=== PATIENT | female | born 1955 | race Asian ===

== ENCOUNTER 2019-03-05 14:35 | Inpatient (IN) | payer MEDICAID ==
[~2019-03-05] VITALS: Ht 152.4 cm; Wt 75.8 kg
[2019-03-05] MEDS ORDERED: IOVERSOL 350 MG/ML 150 ML VIAL ONE (14:56)
[2019-03-05] MEDS ORDERED: SODIUM CHLORIDE 0.9% 100 ML ONE (14:56)
[2019-03-05 15:07] LABS: BASOPHILS % (AUTO) 0.2 % (0.0-2.0); EOSINOPHILS % (AUTO) 0.5 % (1.0-6.0); HEMATOCRIT 31.8 % (36-46); HEMOGLOBIN 10.2 g/dL (12.0-16.0); LYMPHOCYTES # (AUTO) 0.5 K/uL (1.0-4.8); MEAN CORPUSCULAR VOLUME 75 fL (80-100); MONOCYTES # (AUTO) 0.3 K/uL (0.1-1.0); MONOCYTES % (AUTO) 3.4 % (2.0-9.0); NEUTROPHILS # (AUTO) 9.2 K/uL (1.8-7.7); PLATELET COUNT (AUTO) 236 K/uL (150-450); RED BLOOD CELL COUNT(AUTO) 4.25 MIL/uL (4.00-5.20); RED CELL DISTRIBUTION WIDTH 17.6 % (11.5-14.5)
[2019-03-05 15:17] LABS: NEUTROPHILS % (AUTO) 90.9 % (40.0-70.0)
[2019-03-05 15:22] LABS: CALCIUM, TOTAL 8.5 mg/dL (8.8-10.5); CREATININE 1.04 mg/dL (0.60-1.30); POTASSIUM 5.5 mmol/L (3.5-5.1)
[2019-03-05 15:25] LABS: INR 1.1 (0.9-1.1); PROTHROMBIN TIME 11.5 SEC (9.4-11.6)
[2019-03-05 15:47] LABS: ALBUMIN 2.7 g/dL (3.4-5.0); BILIRUBIN,TOTAL 0.3 mg/dL (0.1-1.0)
[2019-03-05] MEDS ORDERED: ALBUTEROL SULFATE 2.5 MG/0.5 ML NEB SOLUTION NEB PRN ×2 (16:45→21:00)
[2019-03-05] MEDS ORDERED: BISACODYL 10 MG RECTAL RECTAL SUPPOSITORY PR PRN (16:45)
[2019-03-05] MEDS ORDERED: FUROSEMIDE 40 MG/4 ML VIAL IVP ONE (18:30)
[2019-03-05 20:06] LABS: APPEARANCE,URINE CLOUDY (CLEAR); BILIRUBIN,URINE NEGATIVE (NEGATIVE); GLUCOSE, URINE (UA) 100 mg/dL (NEGATIVE); KETONES,URINE NEGATIVE (NEGATIVE); LEUKOCYTE ESTERASE ,URINE MODERATE (NEGATIVE); NITRATE,URINE POSITIVE (NEGATIVE); OCCULT BLOOD,URINE MODERATE (NEGATIVE); PROTEIN,URINE SEE CONFIRM (NEGATIVE); UROBILINOGEN,URINE 0.2 mg/dL (<=1.0)
[2019-03-05 20:22] LABS: SULFOSALICYLIC ACID,URINE 4+ (Negative)
[2019-03-05 20:30] LABS: BACTERIA,URINE Many /HPF (None Seen)
[2019-03-05 20:35] LABS: SQUAMOUS EPITHELIAL CELL,UR Few /LPF (None Seen); WBC,URINE 26-50 /HPF (0-5)
[2019-03-05 20:38] LABS: OTHER CASTS, URINE 1 WAXY CAST SEEN /LPF (None Seen)
[2019-03-05 20:39] LABS: RENAL EPITHELIAL CELLS,URINE Few /LPF (None Seen)
[2019-03-05] MEDS ORDERED: CeFAZolin 1 GM/DEXTROSE 50 ML IV ONE (21:00)
[2019-03-05 22:22] VITALS: BP 114/65
[2019-03-05] MEDS ORDERED: SODIUM CHLORIDE 0.9% 1,000 ML ONE (22:51)
[2019-03-06] MEDS: CefTRIAXone 1 GM/DEXTROSE 50 ML IV SCH ×2 (00:07→23:51)
[2019-03-06] MEDS: DOCUSATE SODIUM 100 MG CAPSULE PO SCH ×3 (00:07→21:00)
[2019-03-06] MEDS: HEPARIN SODIUM,PORCINE 5,000 UNITS/ML VIAL SQ SCH ×4 (00:07→23:53)
[2019-03-06 00:10] VITALS: BP 128/67
[2019-03-06 04:42] VITALS: BP 134/69
[2019-03-06 06:33] LABS: ALANINE AMINOTRANSFERASE 25 U/L (12-78); ALBUMIN 2.3 g/dL (3.4-5.0); ALKALINE PHOSPHATASE 129 U/L (46-116); ANION GAP 5 mmol/L (8-16); ASPARTATE AMINOTRANSFERASE 34 U/L (15-37); BILIRUBIN,TOTAL 0.2 mg/dL (0.1-1.0); CALCIUM, TOTAL 8.2 mg/dL (8.8-10.5); CARBON DIOXIDE 30 mmol/L (22-29); CHLORIDE 97 mmol/L (98-107); CREATININE 0.93 mg/dL (0.60-1.30); GLOMERULAR FILTR. RATE CALC > 60 mL/min (>60); GLUCOSE,RANDOM 137 mg/dL (70-110); POTASSIUM 5.1 mmol/L (3.5-5.1); SODIUM SERUM 132 mmol/L (136-145); TOTAL PROTEIN, SERUM 6.9 g/dL (6.4-8.2); UREA NITROGEN, BLOOD 44 mg/dL (7-18)
[2019-03-06 07:33] VITALS: BP 155/59
[2019-03-06 09:56] LABS: LACTATE DEHYDROGENASE 369 U/L (81-234)
[2019-03-06 11:06] VITALS: BP 151/77
[2019-03-06 13:01] LABS: SPECIMENTYPE,BODY FLUID PLEURAL
[2019-03-06 13:32] LABS: APPEARANCE,UNSPUN,BODY FLUID HAZY (CLEAR)
[2019-03-06 13:33] LABS: APPEARANCE,SPUN,BODY FLUID CLEAR (CLEAR); BASOPHILS,BODY FLUID 0 %; COLOR,BODY FLUID YELLOW (LT YELLOW); EOSINOPHILS,BF (ANAL) 0 %; LYMPHOCYTES,BODY FLUID 24 %; MONOCYTES,BODY FLUID 5 %; NEUTROPHILS,BODY FLUID 71 %; OTHER CELLS,BODY FLUID 0; TOTAL VOLUME,BODY FLUID 1000 mL; WBC, BODY FLUID 58 /cu. mm.
[2019-03-06 15:37] VITALS: BP 140/59
[2019-03-06 19:39] VITALS: BP 159/79
[2019-03-07] VITALS (8 sets, daily range): BP systolic 117–181; BP diastolic 57–82
[2019-03-07] MEDS: ACETAMINOPHEN 325 MG TABLET PO PRN (05:11)
[2019-03-07 05:52] LABS: BASOPHILS % (AUTO) 0.4 % (0.0-2.0); HEMATOCRIT 30.2 % (36-46); HEMOGLOBIN 9.6 g/dL (12.0-16.0); LYMPHOCYTES # (AUTO) 0.8 K/uL (1.0-4.8); LYMPHOCYTES % (AUTO) 6.6 % (22.0-44.0); MEAN CORPUSCULAR HEMOGLOBIN 23.5 pg (26.0-34.0); MEAN CORPUSCULAR HGB CONC 31.7 G/dL (31.0-37.0); MEAN CORPUSCULAR VOLUME 74 fL (80-100); NEUTROPHILS # (AUTO) 10.5 K/uL (1.8-7.7); PLATELET COUNT (AUTO) 244 K/uL (150-450); RED BLOOD CELL COUNT(AUTO) 4.08 MIL/uL (4.00-5.20); RED CELL DISTRIBUTION WIDTH 17.9 % (11.5-14.5)
[2019-03-07 06:21] LABS: ANION GAP 1 mmol/L (8-16); CALCIUM, TOTAL 8.2 mg/dL (8.8-10.5); CARBON DIOXIDE 31 mmol/L (22-29); CHLORIDE 98 mmol/L (98-107); GLOMERULAR FILTR. RATE CALC > 60 mL/min (>60); GLUCOSE,RANDOM 113 mg/dL (70-110); PHOSPHORUS 3.8 mg/dL (2.5-4.9); POTASSIUM 4.7 mmol/L (3.5-5.1); SODIUM SERUM 130 mmol/L (136-145); UREA NITROGEN, BLOOD 38 mg/dL (7-18)
[2019-03-07] MEDS: HEPARIN SODIUM,PORCINE 5,000 UNITS/ML VIAL SQ SCH ×3 (08:00→23:46)
[2019-03-07] MEDS: DOCUSATE SODIUM 100 MG CAPSULE PO SCH ×2 (08:39→21:00)
[2019-03-07] MEDS ORDERED: CloNIDine HCL 0.1 MG TABLET PO PRN (15:30)
[2019-03-07] MEDS: AmLODIPine BESYLATE 10 MG TABLET PO SCH (16:16)
[2019-03-07] MEDS: CefTRIAXone 1 GM/DEXTROSE 50 ML IV SCH (23:46)
[2019-03-08] MEDS ORDERED: SODIUM CHLORIDE 0.9% 100 ML ONE (04:36)
[2019-03-08 04:42] VITALS: BP 133/60
[2019-03-08] MEDS: ACETAMINOPHEN 325 MG TABLET PO PRN (04:48)
[2019-03-08 06:49] LABS: BASOPHILS % (AUTO) 0.4 % (0.0-2.0); EOSINOPHILS % (AUTO) 1.5 % (1.0-6.0); HEMATOCRIT 28.2 % (36-46); LYMPHOCYTES # (AUTO) 0.7 K/uL (1.0-4.8); LYMPHOCYTES % (AUTO) 7.8 % (22.0-44.0); MEAN CORPUSCULAR HEMOGLOBIN 23.4 pg (26.0-34.0); MEAN CORPUSCULAR HGB CONC 32.1 G/dL (31.0-37.0); MEAN CORPUSCULAR VOLUME 73 fL (80-100); MONOCYTES # (AUTO) 0.9 K/uL (0.1-1.0); MONOCYTES % (AUTO) 9.6 % (2.0-9.0); NEUTROPHILS # (AUTO) 7.5 K/uL (1.8-7.7); NEUTROPHILS % (AUTO) 80.7 % (40.0-70.0); PLATELET COUNT (AUTO) 202 K/uL (150-450); RED BLOOD CELL COUNT(AUTO) 3.86 MIL/uL (4.00-5.20); RED CELL DISTRIBUTION WIDTH 17.5 % (11.5-14.5)
[2019-03-08 07:04] LABS: CALCIUM, TOTAL 7.5 mg/dL (8.8-10.5); CREATININE 1.02 mg/dL (0.60-1.30); POTASSIUM 4.6 mmol/L (3.5-5.1)
[2019-03-08 07:21] VITALS: BP 146/59
[2019-03-08] MEDS: DOCUSATE SODIUM 100 MG CAPSULE PO SCH ×2 (08:29→21:00)
[2019-03-08] MEDS: AmLODIPine BESYLATE 10 MG TABLET PO SCH (08:29)
[2019-03-08] MEDS: HEPARIN SODIUM,PORCINE 5,000 UNITS/ML VIAL SQ SCH ×3 (08:29→23:49)
[2019-03-08 11:44] VITALS: BP 126/64
[2019-03-08] MEDS: FUROSEMIDE 20 MG/2 ML VIAL IVP SCH ×2 (12:21→21:25)
[2019-03-08] MEDS ORDERED: DEXTROSE 50%-WATER 25 GM/50 ML SYRINGE IVP PRN (15:00)
[2019-03-08 15:56] VITALS: BP 122/62
[2019-03-08 17:21] LABS: GLUCOMETER DEV NAME(LOC) 5N.1; GLUCOSE,POINT OF CARE 197 MG/DL (70-110)
[2019-03-08] MEDS: INSULIN LISPRO 100 UNITS/ML SQ PRN ×2 (17:28→21:41)
[2019-03-08 19:37] VITALS: BP 137/67
[2019-03-08] MEDS: ATORVASTATIN CALCIUM 20 MG TABLET PO SCH (21:25)
[2019-03-08] MEDS: CefTRIAXone 1 GM/DEXTROSE 50 ML IV SCH (23:48)
[2019-03-08 23:51] VITALS: BP 137/70
[2019-03-09 05:17] VITALS: BP 149/71
[2019-03-09 05:21] LABS: IGM (IMMUNOFIXATION) 274 mg/dL (26-217)
[2019-03-09] MEDS ORDERED: SODIUM CHLORIDE 0.9% 100 ML ONE (06:01)
[2019-03-09 07:32] LABS: ANION GAP 1 mmol/L (8-16); CALCIUM, TOTAL 7.7 mg/dL (8.8-10.5); CARBON DIOXIDE 30 mmol/L (22-29); CHLORIDE 93 mmol/L (98-107); CREATININE 0.92 mg/dL (0.60-1.30); GLOMERULAR FILTR. RATE CALC > 60 mL/min (>60); GLUCOSE,RANDOM 113 mg/dL (70-110); POTASSIUM 4.9 mmol/L (3.5-5.1); UREA NITROGEN, BLOOD 27 mg/dL (7-18)
[2019-03-09 07:34] LABS: SODIUM SERUM 124 mmol/L (136-145)
[2019-03-09 07:47] VITALS: BP 133/61
[2019-03-09 08:04] LABS: GLUCOMETER DEV NAME(LOC) 5N.2; GLUCOSE,POINT OF CARE 116 MG/DL (70-110)
[2019-03-09 08:04] LABS: GLUCOMETER DEV NAME(LOC) 5N.2; GLUCOSE,POINT OF CARE 178 MG/DL (70-110)
[2019-03-09] MEDS: AmLODIPine BESYLATE 10 MG TABLET PO SCH (08:18)
[2019-03-09] MEDS: HEPARIN SODIUM,PORCINE 5,000 UNITS/ML VIAL SQ SCH ×2 (08:18→16:14)
[2019-03-09] MEDS: FUROSEMIDE 20 MG/2 ML VIAL IVP SCH (08:18)
[2019-03-09] MEDS: DOCUSATE SODIUM 100 MG CAPSULE PO SCH ×2 (09:00→21:00)
[2019-03-09] MEDS: INSULIN LISPRO 100 UNITS/ML SQ PRN ×3 (11:56→21:46)
[2019-03-09 13:51] LABS: LIPASE 557 U/L (73-393); SODIUM SERUM 130 mmol/L (136-145)
[2019-03-09 15:54] LABS: CREATININE,URINE 37.9 mg/dL (30.0-125.0)
[2019-03-09 16:03] LABS: CREATININE,SERUM FOR CRCL 0.92 mg/dL (0.60-1.30)
[2019-03-09 16:19] VITALS: BP 125/61
[2019-03-09 19:03] LABS: GLUCOMETER DEV NAME(LOC) 5N.2; GLUCOSE,POINT OF CARE 191 MG/DL (70-110)
[2019-03-09 19:08] VITALS: BP 133/56
[2019-03-09] MEDS ORDERED: TOLVAPTAN 15 MG TABLET PO ONE ×2 (20:15→22:00)
[2019-03-09] MEDS: ATORVASTATIN CALCIUM 20 MG TABLET PO SCH (21:47)
[2019-03-09 22:21] LABS: GLUCOMETER DEV NAME(LOC) 5N.2; GLUCOSE,POINT OF CARE 222 MG/DL (70-110)
[2019-03-09 22:21] LABS: GLUCOMETER DEV NAME(LOC) 5N.1; GLUCOSE,POINT OF CARE 191 MG/DL (70-110)
[2019-03-09] MEDS: CefTRIAXone 1 GM/DEXTROSE 50 ML IV SCH (23:48)
[2019-03-10 00:36] VITALS: BP 148/79
[2019-03-10] MEDS: HEPARIN SODIUM,PORCINE 5,000 UNITS/ML VIAL SQ SCH ×4 (00:56→23:42)
[2019-03-10 03:40] VITALS: BP 151/83
[2019-03-10 05:40] LABS: SODIUM,URINE RANDOM 20 mmol/l (20-110)
[2019-03-10 05:42] LABS: OSMOLALITY,URINE 348 mOS/kg (50-1200)
[2019-03-10 07:12] LABS: ANION GAP 1 mmol/L (8-16); CALCIUM, TOTAL 7.7 mg/dL (8.8-10.5); CARBON DIOXIDE 31 mmol/L (22-29); CHLORIDE 93 mmol/L (98-107); CHOL/HDL RATIO 2.5 (3.9-5.7); CHOLESTEROL 78 mg/dL (131-200); GLOMERULAR FILTR. RATE CALC > 60 mL/min (>60); GLUCOSE,RANDOM 103 mg/dL (70-110); HDL CHOLESTEROL 31 mg/dL (40-60); LDL CHOL (CALC.) 30 mg/dL (0-130); POTASSIUM 4.9 mmol/L (3.5-5.1); SODIUM SERUM 125 mmol/L (136-145); TRIGLYCERIDES 85 mg/dL (15-150); UREA NITROGEN, BLOOD 29 mg/dL (7-18)
[2019-03-10 07:14] VITALS: BP 141/69
[2019-03-10] MEDS: DOCUSATE SODIUM 100 MG CAPSULE PO SCH ×2 (09:00→21:00)
[2019-03-10] MEDS: AmLODIPine BESYLATE 10 MG TABLET PO SCH (09:13)
[2019-03-10 11:55] VITALS: BP 154/71
[2019-03-10] MEDS: INSULIN LISPRO 100 UNITS/ML SQ PRN ×3 (12:14→21:53)
[2019-03-10 12:20] LABS: OSMOLALITY,URINE 241 mOS/kg (50-1200)
[2019-03-10 12:27] LABS: SODIUM,URINE RANDOM 7 mmol/l (20-110)
[2019-03-10] MEDS: CANAGLIFLOZIN 100 MG TABLET PO SCH (12:29)
[2019-03-10 12:34] LABS: GLUCOMETER DEV NAME(LOC) 5N.2; GLUCOSE,POINT OF CARE 100 MG/DL (70-110)
[2019-03-10 12:34] LABS: GLUCOMETER DEV NAME(LOC) 5N.1; GLUCOSE,POINT OF CARE 173 MG/DL (70-110)
[2019-03-10 15:20] LABS: CALCIUM, TOTAL 7.6 mg/dL (8.8-10.5); CREATININE 0.98 mg/dL (0.60-1.30)
[2019-03-10 19:25] VITALS: BP 151/67
[2019-03-10 19:59] LABS: GLUCOMETER DEV NAME(LOC) 5N.2; GLUCOSE,POINT OF CARE 191 MG/DL (70-110)
[2019-03-10] MEDS: FUROSEMIDE 40 MG TABLET PO SCH (21:41)
[2019-03-10 23:07] VITALS: BP 154/62
[2019-03-10] MEDS: CefTRIAXone 1 GM/DEXTROSE 50 ML IV SCH (23:39)
[2019-03-11 01:59] LABS: GLUCOMETER DEV NAME(LOC) 5N.2; GLUCOSE,POINT OF CARE 196 MG/DL (70-110)
[2019-03-11 04:22] VITALS: BP 150/61
[2019-03-11] MEDS: SODIUM CHLORIDE 1 GM TABLET PO SCH ×4 (06:28→20:21)
[2019-03-11 06:49] LABS: GLUCOMETER DEV NAME(LOC) 5S.2A; GLUCOSE,POINT OF CARE 108 MG/DL (70-110)
[2019-03-11 07:14] LABS: CREATININE 0.94 mg/dL (0.60-1.30); POTASSIUM 4.7 mmol/L (3.5-5.1)
[2019-03-11 08:01] VITALS: BP 154/68
[2019-03-11] MEDS: DOCUSATE SODIUM 100 MG CAPSULE PO SCH ×2 (09:00→20:25)
[2019-03-11] MEDS: AmLODIPine BESYLATE 10 MG TABLET PO SCH (09:11)
[2019-03-11] MEDS: FUROSEMIDE 40 MG TABLET PO SCH ×2 (09:11→20:20)
[2019-03-11] MEDS: HEPARIN SODIUM,PORCINE 5,000 UNITS/ML VIAL SQ SCH ×3 (09:12→23:22)
[2019-03-11 11:32] VITALS: BP 150/72
[2019-03-11 11:40] LABS: GLUCOMETER DEV NAME(LOC) 5N.1; GLUCOSE,POINT OF CARE 161 MG/DL (70-110)
[2019-03-11] MEDS: CANAGLIFLOZIN 100 MG TABLET PO SCH (12:12)
[2019-03-11] MEDS ORDERED: HydrALAZINE HCL 25 MG TABLET PO ONE (13:00)
[2019-03-11] MEDS: INSULIN LISPRO 100 UNITS/ML SQ PRN ×3 (13:03→20:28)
[2019-03-11 16:28] VITALS: BP 153/69
[2019-03-11 17:48] LABS: GLUCOMETER DEV NAME(LOC) 5N.1; GLUCOSE,POINT OF CARE 241 MG/DL (70-110)
[2019-03-11 20:17] VITALS: BP 161/73
[2019-03-11] MEDS: HydrALAZINE HCL 25 MG TABLET PO SCH (20:22)
[2019-03-11] MEDS: ACETAMINOPHEN 325 MG TABLET PO PRN (21:02)
[2019-03-11 23:09] LABS: GLUCOMETER DEV NAME(LOC) 5N.1; GLUCOSE,POINT OF CARE 210 MG/DL (70-110)
[2019-03-11] MEDS: CefTRIAXone 1 GM/DEXTROSE 50 ML IV SCH (23:13)
[2019-03-12 00:05] VITALS: BP 154/71
[2019-03-12 04:08] VITALS: BP 139/64
[2019-03-12 07:09] LABS: CALCIUM, TOTAL 8.5 mg/dL (8.8-10.5); CREATININE 0.97 mg/dL (0.60-1.30); POTASSIUM 4.5 mmol/L (3.5-5.1)
[2019-03-12] MEDS ORDERED: LIDOCAINE 1%/EPI 1:100,000 30 ML VIAL INJ ONE (07:15)
[2019-03-12 07:26] LABS: % IRON SATURATION 6.9 % (22-44)
[2019-03-12 07:30] VITALS: BP 158/80
[2019-03-12] MEDS: HEPARIN SODIUM,PORCINE 5,000 UNITS/ML VIAL SQ SCH ×2 (07:56→16:00)
[2019-03-12] MEDS: AmLODIPine BESYLATE 10 MG TABLET PO SCH (08:48)
[2019-03-12] MEDS: FUROSEMIDE 40 MG TABLET PO SCH (08:48)
[2019-03-12] MEDS: SODIUM CHLORIDE 1 GM TABLET PO SCH ×2 (08:48→17:32)
[2019-03-12] MEDS: HydrALAZINE HCL 25 MG TABLET PO SCH (08:48)
[2019-03-12] MEDS: DOCUSATE SODIUM 100 MG CAPSULE PO SCH (08:49)
[2019-03-12] MEDS ORDERED: SOD FERRIC GLUC COMPLX/SUCROSE 125 MG in SODIUM CHLORIDE 0.9% 100 ML IV SCH (10:00)
[2019-03-12 10:38] LABS: FREE KAPPA LIGHT CHAINS,S 89.9 mg/L (3.3-19.4); FREE KAPPA/LAMBDA LT CHN RATIO 1.77 (0.26-1.65)
[2019-03-12 11:00] VITALS: BP 141/61
[2019-03-12] MEDS: INSULIN LISPRO 100 UNITS/ML SQ PRN ×2 (12:30→17:48)
[2019-03-12] MEDS ORDERED: NACL1 PO ×2 (13:21→13:27)
[2019-03-12] MEDS ORDERED: FURO40 PO (13:21)
[2019-03-12] MEDS ORDERED: CANA100T PO (13:21)
[2019-03-12] MEDS ORDERED: AMLO10TA55 PO (13:21)
[2019-03-12] MEDS ORDERED: HYDR25TA84 PO (13:21)
[2019-03-12] MEDS ORDERED: AMOX1TAB16 PO (13:25)
[2019-03-12] MEDS ORDERED: DOCU-275 PO (13:25)
[2019-03-12] MEDS ORDERED: FERR-82 PO (13:25)
[2019-03-12] MEDS: CANAGLIFLOZIN 100 MG TABLET PO SCH ×2 (14:15→15:10)
[2019-03-12 16:00] VITALS: BP 150/61
[2019-03-12] MEDS ORDERED: INSU3INS3 SQ (18:12)
[2019-03-12] MEDS ORDERED: INSNOV SQ (18:25)
[2019-03-13 00:53] LABS: GLUCOMETER DEV NAME(LOC) 5N.1; GLUCOSE,POINT OF CARE 220 MG/DL (70-110)
[2019-03-13 00:53] LABS: GLUCOMETER DEV NAME(LOC) 5N.1; GLUCOSE,POINT OF CARE 138 MG/DL (70-110)
[2019-03-13 00:53] LABS: GLUCOMETER DEV NAME(LOC) 5N.1; GLUCOSE,POINT OF CARE 228 MG/DL (70-110)
== END 2019-03-12 18:50 | disposition home or self-care (01) | DRG 194 ==
LOC: EMS 14:36 → 5N 18:48
PROVIDERS: ADMIT Internal Medicine; ATTEND Internal Medicine
PROC: 0W993ZZ Drainage of Right Pleural Cavity, Percutaneous Approach (ICD-10-PCS; principal; 2019-03-06)
PROC: 0HBU3ZX Excision of Left Breast, Percutaneous Approach, Diagnostic (ICD-10-PCS; 2019-03-12)
DX: J90 Pleural effusion, not elsewhere classified (principal); I50.9 Heart failure, unspecified; J96.91 Respiratory failure, unspecified with hypoxia; E43 Unspecified severe protein-calorie malnutrition; E11.21 Type 2 diabetes mellitus with diabetic nephropathy; D64.9 Anemia, unspecified; N63.0 Unspecified lump in unspecified breast; E87.5 Hyperkalemia; E87.1 Hypo-osmolality and hyponatremia; N39.0 Urinary tract infection, site not specified; N63.20 Unspecified lump in the left breast, unspecified quadrant; N04.9 Nephrotic syndrome with unspecified morphologic changes; E85.9 Amyloidosis, unspecified; N05.9 Unspecified nephritic syndrome with unspecified morphologic changes; E88.09 Other disorders of plasma-protein metabolism, not elsewhere classified; E11.22 Type 2 diabetes mellitus with diabetic chronic kidney disease; N18.9 Chronic kidney disease, unspecified; Z68.32 Body mass index [BMI] 32.0-32.9, adult; Z80.0 Family history of malignant neoplasm of digestive organs; Z82.71 Family history of polycystic kidney
CPT/HCPCS: 32555; 71275; 76700; 76942; 81050; 82150; 82465; 82575; 82784; 82945; 83036; 83540; 83550; 83615; 83735; 83883; 83935; 83986; 84100; 84156; 84157; 84166; 84295; 84300; 84443; 86038; 86334; 86704; 86803; 87015; 87070; 87086; 87101; 87205; 87206; 88108; 88305; 88312; 88341; 88342; 89051; 93005; 93306; 99291; J0696; J1644; J1940; J2916; J3490; J7030; J7050

== ENCOUNTER 2019-03-21 10:27 | Inpatient (IN) | payer MEDICAID ==
[~2019-03-21] VITALS: Ht 167.6 cm; Wt 94.7 kg
[~2019-03-21 10:27] MED LIST: AMLO10TA55 PO; AMOX1TAB16 PO; CANA100T PO; DOCU-275 PO; FERR-82 PO; FURO40 PO; HYDR25TA84 PO; INSNOV SQ; INSU3INS3 SQ; NACL1 PO
[2019-03-21] MEDS ORDERED: PHENYLEPHRINE HCL IN 0.9% NACL 400 MCG/10 ML SYRINGE IVP ONE (10:36)
[2019-03-21] MEDS: DOPamine HCL 400 MG/D5%-WATER 250 ML IV PRN ×4 (10:38→18:57)
[2019-03-21] MEDS ORDERED: NOREPINEPHRINE 4 MG/D5%-WATER 250 ML IV ONE ×2 (10:43→18:08)
[2019-03-21 10:57] LABS: HEMATOCRIT 29.1 % (36-46); HEMOGLOBIN 9.1 g/dL (12.0-16.0); MEAN CORPUSCULAR HEMOGLOBIN 25.2 pg (26.0-34.0); MEAN CORPUSCULAR HGB CONC 31.4 G/dL (31.0-37.0); MEAN CORPUSCULAR VOLUME 80 fL (80-100); PLATELET COUNT (AUTO) 112 K/uL (150-450); RED BLOOD CELL COUNT(AUTO) 3.63 MIL/uL (4.00-5.20); RED CELL DISTRIBUTION WIDTH 18.2 % (11.5-14.5)
[2019-03-21 11:08] LABS: INR 1.3 (0.9-1.1); PROTHROMBIN TIME 12.7 SEC (9.4-11.6)
[2019-03-21 11:13] LABS: ABG A-A DIFF O2 323.9 mmHg (10-20.0); ABG BASE EXCESS -7.4 mmol/L (-2.0-3.0); ABG CARBOXYHEMOGLOBIN 1.2 % (0.0-1.5); ABG METHEMOGLOBIN 0.3 % (0.0-1.5); ABG OXYGEN CONTENT 14.9 mL/dL (15.0-23.0); ABG OXYGEN SATURATION 99.9 % (95.0-98.0); ABG OXYHEMOGLOBIN 98.4 % (94.0-100.0); ABG TOTAL HEMOGLOBIN 10.2 G/dL (12.0-18.0); PO2, ARTERIAL BG 310.8 mmHg (79.0-87.0); SOURCE, BLOOD GAS ARTERIAL; TEMPERATURE, FAHRENHEIT, BG 98.6 FAHREN (96.0-98.6)
[2019-03-21 11:28] LABS: ALANINE AMINOTRANSFERASE 43 U/L (12-78); ALKALINE PHOSPHATASE 202 U/L (46-116); ANION GAP 5 mmol/L (8-16); ASPARTATE AMINOTRANSFERASE 51 U/L (15-37); BILIRUBIN,TOTAL 0.1 mg/dL (0.1-1.0); CALCIUM, TOTAL 7.7 mg/dL (8.8-10.5); CARBON DIOXIDE 28 mmol/L (22-29); CHLORIDE 99 mmol/L (98-107); CREATINE KINASE, TOTAL ONLY 148 U/L (26-192); CREATININE 1.34 mg/dL (0.60-1.30); GLOMERULAR FILTR. RATE CALC 40 mL/min (>60); GLUCOSE,RANDOM 380 mg/dL (70-110); SODIUM SERUM 132 mmol/L (136-145); THYROID STIMULATING HORMONE 8.02 uIU/mL (0.36-3.74); TOTAL PROTEIN, SERUM 5.7 g/dL (6.4-8.2); UREA NITROGEN, BLOOD 44 mg/dL (7-18)
[2019-03-21] MEDS ORDERED: PIPERACILLIN/TAZO 3.375 GM/D5W 50 ML IV ONE (11:30)
[2019-03-21] MEDS ORDERED: ALBUTEROL SULFATE 5 MG/ML 20 ML NEB SOLN [BULK] NEB ONE (11:30)
[2019-03-21 11:34] LABS: B-TYPE NATRIURETIC PEPTIDE 195 pg/mL (0-100)
[2019-03-21 11:35] LABS: CORRECTED WHITE BLOOD COUNT 21.8 K/uL (4.5-11.0)
[2019-03-21 11:36] LABS: POTASSIUM 6.3 mmol/L (3.5-5.1)
[2019-03-21] MEDS ORDERED: INSULIN REGULAR, HUMAN 100 UNITS/ML IVP ONE (11:45)
[2019-03-21] MEDS ORDERED: CALCIUM GLUCONATE 100 MG/ML 10 ML IVP ONE (11:45)
[2019-03-21] MEDS ORDERED: SODIUM BICARBONATE [ADULT] 8.4% 50 MEQ/50 ML SYRINGE IVP ONE ×2 (11:45→16:48)
[2019-03-21] MEDS ORDERED: DEXTROSE 50%-WATER 25 GM/50 ML SYRINGE IVP ONE (11:45)
[2019-03-21 11:53] LABS: BAND NEUTROPHILS % (MANUAL) 7 % (0-5); BASOPHILS % (MANUAL) 2 % (0-2); EOSINOPHILS % (MANUAL) 2 % (1-6); LYMPHOCYTES % (MANUAL) 36 % (22-44); MONOCYTES % (MANUAL) 2 % (2-9); SEGMENTED NEUTROPHILS % 51 % (40-70)
[2019-03-21 11:57] LABS: LACTIC ACID 6.9 mmol/L (0.4-2.0)
[2019-03-21 11:59] LABS: APPEARANCE,URINE CLOUDY (CLEAR); BILIRUBIN,URINE NEGATIVE (NEGATIVE); GLUCOSE, URINE (UA) 250 mg/dL (NEGATIVE); KETONES,URINE NEGATIVE (NEGATIVE); LEUKOCYTE ESTERASE ,URINE NEGATIVE (NEGATIVE); NITRATE,URINE NEGATIVE (NEGATIVE); OCCULT BLOOD,URINE NEGATIVE (NEGATIVE); PROTEIN,URINE POS 1+ (NEGATIVE); UROBILINOGEN,URINE 0.2 mg/dL (<=1.0)
[2019-03-21] MEDS ORDERED: SODIUM CHLORIDE 0.9% 1,000 ML IV ONE ×3 (12:00→15:45)
[2019-03-21 12:02] LABS: BACTERIA,URINE None Seen /HPF (None Seen); FINE GRANULAR CASTS,URINE 0-2 /LPF (None Seen); RBC,URINE None Seen /HPF (0-2); SQUAMOUS EPITHELIAL CELL,UR Moderate /LPF (None Seen); WBC,URINE None Seen /HPF (0-5)
[2019-03-21 12:04] LABS: AMPHET/METH SCREEN,URINE NEGATIVE (NEGATIVE); BARBITURATE SCREEN, URINE NEGATIVE (NEGATIVE); BENZODIAZEPINES SCREEN,URINE NEGATIVE (NEGATIVE); CANNABINOID SCREEN,URINE NEGATIVE (NEGATIVE); COCAINE SCREEN,URINE NEGATIVE (NEGATIVE); METHADONE SCREEN, URINE NEGATIVE (NEGATIVE); OPIATE SCREEN,URINE NEGATIVE (NEGATIVE); PHENCYCLIDINE SCREEN,URINE NEGATIVE (NEGATIVE)
[2019-03-21 12:18] LABS: INFLUENZA TYPE A NEGATIVE FOR TYPE A (NEGATIVE); INFLUENZA TYPE B NEGATIVE FOR TYPE B (NEGATIVE)
[2019-03-21] MEDS: NOREPINEPHRINE 4 MG/D5%-WATER 250 ML IV PRN ×3 (12:25→18:11)
[2019-03-21 12:32] LABS: ABG PCO2 78 mmHg (35-45); ABG PH 7.078 (7.35-7.450)
[2019-03-21 12:33] LABS: SITE, BLOOD GAS RT RADIAL
[2019-03-21 12:34] LABS: O2 DEVICE,BLOOD GAS VENTILATOR (ROOM AIR); PEEP,BG 5 cm H2O; SPONTANEOUS VT, BG 444 ml; VT, ABG 450 ml
[2019-03-21 12:54] LABS: ABG BASE EXCESS -4.9 mmol/L (-2.0-3.0); ABG CARBOXYHEMOGLOBIN 1.4 % (0.0-1.5); ABG HCO3 20.4 mmol/L (22.0-26.0); ABG METHEMOGLOBIN 0.3 % (0.0-1.5); ABG OXYGEN SATURATION 96.7 % (95.0-98.0); ABG OXYHEMOGLOBIN 95.1 % (94.0-100.0); ABG PCO2 40 mmHg (35-45); ABG PH 7.339 (7.35-7.450); ABG TOTAL HEMOGLOBIN 11.1 G/dL (12.0-18.0); PO2, ARTERIAL BG 75.2 mmHg (79.0-87.0); SOURCE, BLOOD GAS ARTERIAL
[2019-03-21] MEDS ORDERED: ACETAMINOPHEN 325 MG TABLET PO PRN ×3 (13:15→15:00)
[2019-03-21] MEDS ORDERED: ONDANSETRON HCL 4 MG/2 ML VIAL IVP PRN ×3 (13:15→15:00)
[2019-03-21] MEDS ORDERED: 0.9% SODIUM CHLORIDE 10 ML SYRINGE IVP PRN (13:15)
[2019-03-21 13:25] LABS: SITE, BLOOD GAS RT RADIAL
[2019-03-21 13:26] LABS: O2 DEVICE,BLOOD GAS VENTILATOR (ROOM AIR); PEEP,BG 5 cm H2O; SPONTANEOUS VT, BG 444 ml; VT, ABG 450 ml
[2019-03-21] MEDS ORDERED: VANCOMYCIN HCL 1 GM/D5% WATER 200 ML IV ONE (13:45)
[2019-03-21] MEDS ORDERED: PHENYLEPHRINE 200 MG/D5%-WATER 250 ML IV PRN (14:11)
[2019-03-21 14:15] LABS: ALBUMIN 2.1 g/dL (3.4-5.0); BILIRUBIN,TOTAL 0.5 mg/dL (0.1-1.0); CALCIUM, TOTAL 9.4 mg/dL (8.8-10.5); CREATININE 1.54 mg/dL (0.60-1.30); POTASSIUM 4.1 mmol/L (3.5-5.1); TOTAL PROTEIN, SERUM 6.5 g/dL (6.4-8.2)
[2019-03-21] MEDS ORDERED: VASOPRESSIN 40 UNITS in DEXTROSE 5%-WATER 98 ML IV ONE (14:30)
[2019-03-21 14:59] LABS: GLUCOSE,POINT OF CARE 365 MG/DL (70-110)
[2019-03-21 14:59] LABS: GLUCOSE,POINT OF CARE 398 MG/DL (70-110)
[2019-03-21] MEDS ORDERED: HYDROCORTISONE SOD SUCC 100 MG/2 ML VIAL IVP ONE (15:00)
[2019-03-21] MEDS ORDERED: ZOLPIDEM TARTRATE 5 MG TABLET PO PRN ×2 (15:00)
[2019-03-21] MEDS ORDERED: MORPHINE SULFATE 2 MG/ML SYRINGE IVP PRN ×2 (15:00)
[2019-03-21] MEDS ORDERED: HYDROCODONE/ACETAMINOPHEN 5-325 MG TABLET PO PRN ×2 (15:00)
[2019-03-21] MEDS ORDERED: BISACODYL 10 MG RECTAL RECTAL SUPPOSITORY PR PRN ×2 (15:00)
[2019-03-21] MEDS ORDERED: MAGNESIUM HYDROXIDE SUSPENSION 30 ML UDCUP PO PRN ×2 (15:00)
[2019-03-21 15:12] LABS: ABG A-A DIFF O2 626.3 mmHg (10-20.0); ABG CARBOXYHEMOGLOBIN 1.4 % (0.0-1.5); ABG METHEMOGLOBIN 0.3 % (0.0-1.5); ABG OXYGEN CONTENT 15.8 mL/dL (15.0-23.0); ABG OXYGEN SATURATION 94.8 % (95.0-98.0); ABG OXYHEMOGLOBIN 93.2 % (94.0-100.0); ABG PCO2 35 mmHg (35-45); ABG PH 7.349 (7.35-7.450); PO2, ARTERIAL BG 61.5 mmHg (79.0-87.0); SOURCE, BLOOD GAS ARTERIAL; TEMPERATURE, FAHRENHEIT, BG 91.4 FAHREN (96.0-98.6)
[2019-03-21 15:19] LABS: O2 DEVICE,BLOOD GAS VENTILATOR (ROOM AIR); PEEP,BG 12 cm H2O; SITE, BLOOD GAS RT RADIAL; SPONTANEOUS VT, BG 440 ml; VT, ABG 450 ml
[2019-03-21] MEDS: HEPARIN SODIUM,PORCINE 5,000 UNITS/ML VIAL SQ SCH (15:42)
[2019-03-21] MEDS ORDERED: HEPARIN SODIUM,PORCINE 5,000 UNITS/ML VIAL SQ SCH (16:00)
[2019-03-21] MEDS: EPINEPHrine 2 MG, CALCIUM CHLORIDE 1,000 MG in DEXTROSE 5%-WATER 238 ML IV PRN ×2 (16:25→22:30)
[2019-03-21] MEDS ORDERED: EPINEPHrine 1:10,000 [1 MG/10 ML] SYRINGE IVP ONE (16:48)
[2019-03-21] MEDS ORDERED: CALCIUM CHLORIDE 100 MG/ML 10 ML SYRINGE IVP ONE (16:48)
[2019-03-21] MEDS ORDERED: 0.9% SODIUM CHLORIDE 1,000 ML BAG IV ONE (16:48)
[2019-03-21] MEDS ORDERED: DOPamine HCL/D5W 400 MG/250 ML IV BAG IV ONE (16:48)
[2019-03-21] MEDS ORDERED: 0.9% SODIUM CHLORIDE 10 ML SYRINGE IVP ONE (16:48)
[2019-03-21] MEDS ORDERED: 0.9% SODIUM CHLORIDE 250 ML BAG IV ONE (16:48)
[2019-03-21 17:10] LABS: GLUCOSE,POINT OF CARE 388 MG/DL (70-110)
[2019-03-21 17:26] LABS: CREATININE 1.8 mg/dL (0.60-1.30); POTASSIUM 4.2 mmol/L (3.5-5.1)
[2019-03-21] MEDS: PIPERACILLIN/TAZO 3.375 GM/D5W 50 ML IV SCH (18:15)
[2019-03-21] MEDS ORDERED: DEXTROSE 50%-WATER 25 GM/50 ML SYRINGE IVP PRN (18:45)
[2019-03-21] MEDS: INSULIN LISPRO 100 UNITS/ML SQ PRN ×2 (18:56→22:52)
[2019-03-21 19:10] LABS: GLUCOSE,POINT OF CARE 370 MG/DL (70-110)
[2019-03-21] MEDS: DOCUSATE SODIUM 100 MG CAPSULE PO SCH (20:04)
[2019-03-21 20:07] LABS: GLUCOSE,POINT OF CARE 465 MG/DL (70-110)
[2019-03-21 20:27] LABS: ALBUMIN 1.5 g/dL (3.4-5.0); BILIRUBIN,TOTAL 0.4 mg/dL (0.1-1.0); CALCIUM, TOTAL 8.6 mg/dL (8.8-10.5); CREATININE 1.81 mg/dL (0.60-1.30); MAGNESIUM 1.6 mg/dL (1.80-2.40); PHOSPHORUS 2.9 mg/dL (2.5-4.9); POTASSIUM 4.3 mmol/L (3.5-5.1); TOTAL PROTEIN, SERUM 5.1 g/dL (6.4-8.2)
[2019-03-21] MEDS ORDERED: INSULIN GLARGINE,HUM.REC.ANLOG 100 UNITS/ML SQ ONE (21:00)
[2019-03-21] MEDS ORDERED: DOCUSATE SODIUM 100 MG CAPSULE PO SCH (21:00)
[2019-03-21] MEDS ORDERED: INSULIN LISPRO 100 UNITS/ML SQ ONE (21:00)
[2019-03-21 21:13] LABS: ABG A-A DIFF O2 639.1 mmHg (10-20.0); ABG BASE EXCESS -15.8 mmol/L (-2.0-3.0); ABG CARBOXYHEMOGLOBIN 0.5 % (0.0-1.5); ABG METHEMOGLOBIN 0.4 % (0.0-1.5); ABG OXYGEN CONTENT 13.7 mL/dL (15.0-23.0); ABG OXYGEN SATURATION 85.3 % (95.0-98.0); ABG OXYHEMOGLOBIN 84.5 % (94.0-100.0); ABG PCO2 30 mmHg (35-45); ABG PH 7.227 (7.35-7.450); ABG TOTAL HEMOGLOBIN 11.5 G/dL (12.0-18.0); PO2, ARTERIAL BG 50.7 mmHg (79.0-87.0); SOURCE, BLOOD GAS ARTERIAL; TEMPERATURE, FAHRENHEIT, BG 93.9 FAHREN (96.0-98.6)
[2019-03-21 21:14] LABS: SITE, BLOOD GAS ART LINE
[2019-03-21 21:15] LABS: O2 DEVICE,BLOOD GAS VENTILATOR (ROOM AIR); PEEP,BG 12 cm H2O; VT, ABG 450 ml
[2019-03-21 21:16] LABS: SPONTANEOUS VT, BG 449 ml
[2019-03-21] MEDS ORDERED: DOPamine HCL 400 MG/D5%-WATER 250 ML IV ONE (22:15)
[2019-03-22] MEDS: HYDROCORTISONE SOD SUCC 100 MG/2 ML VIAL IVP SCH ×5 (00:07→23:20)
[2019-03-22] MEDS: PIPERACILLIN/TAZO 3.375 GM/D5W 50 ML IV SCH ×2 (00:07→06:26)
[2019-03-22] MEDS: HEPARIN SODIUM,PORCINE 5,000 UNITS/ML VIAL SQ SCH (00:34)
[2019-03-22] MEDS: DOPamine HCL 400 MG/D5%-WATER 250 ML IV PRN ×4 (00:42→13:57)
[2019-03-22] MEDS: NOREPINEPHRINE 4 MG/D5%-WATER 250 ML IV PRN ×3 (00:43→08:53)
[2019-03-22] MEDS: EPINEPHrine 2 MG, CALCIUM CHLORIDE 1,000 MG in DEXTROSE 5%-WATER 238 ML IV PRN ×4 (01:05→11:12)
[2019-03-22 04:22] LABS: ABG A-A DIFF O2 638.9 mmHg (10-20.0); ABG BASE EXCESS -18.6 mmol/L (-2.0-3.0); ABG CARBOXYHEMOGLOBIN 0.3 % (0.0-1.5); ABG HCO3 11.2 mmol/L (22.0-26.0); ABG METHEMOGLOBIN 0.4 % (0.0-1.5); ABG OXYGEN CONTENT 13.7 mL/dL (15.0-23.0); ABG OXYGEN SATURATION 90.7 % (95.0-98.0); ABG OXYHEMOGLOBIN 90.1 % (94.0-100.0); ABG PCO2 27 mmHg (35-45); ABG TOTAL HEMOGLOBIN 10.8 G/dL (12.0-18.0); PO2, ARTERIAL BG 55.5 mmHg (79.0-87.0); SOURCE, BLOOD GAS ARTERIAL
[2019-03-22 04:24] LABS: ABG PH 7.182 (7.35-7.450); O2 DEVICE,BLOOD GAS VENTILATOR (ROOM AIR); PEEP,BG 12 cm H2O; SITE, BLOOD GAS ART LINE; SPONTANEOUS VT, BG 448 ml; VT, ABG 450 ml
[2019-03-22 04:54] LABS: ALBUMIN 1.3 g/dL (3.4-5.0); BILIRUBIN,TOTAL 0.4 mg/dL (0.1-1.0); CALCIUM, TOTAL 9.5 mg/dL (8.8-10.5); CREATININE 1.98 mg/dL (0.60-1.30); MAGNESIUM 1.6 mg/dL (1.80-2.40); PHOSPHORUS 4.1 mg/dL (2.5-4.9); POTASSIUM 4.5 mmol/L (3.5-5.1); TOTAL PROTEIN, SERUM 4.7 g/dL (6.4-8.2)
[2019-03-22] MEDS ORDERED: SODIUM BICARBONATE [ADULT] 8.4% 50 MEQ/50 ML SYRINGE IVP ONE ×2 (05:15→09:30)
[2019-03-22] MEDS ORDERED: SODIUM CHLORIDE 3% 500 ML IV ONE (05:30)
[2019-03-22] MEDS ORDERED: INSULIN REGULAR, HUMAN 100 UNITS in SODIUM CHLORIDE 0.9% 99 ML IV SCH ×2 (05:45)
[2019-03-22] MEDS: INSULIN REGULAR, HUMAN 100 UNITS in SODIUM CHLORIDE 0.9% 99 ML IV PRN ×4 (07:17→18:40)
[2019-03-22 07:37] LABS: GLUCOSE,POINT OF CARE 539 MG/DL (70-110)
[2019-03-22] MEDS ORDERED: VANCOMYCIN HCL 1.25 GM in DEXTROSE 5%-WATER 250 ML IV ONE (08:00)
[2019-03-22 08:45] LABS: GLUCOSE,POINT OF CARE > 600 MG/DL (70-110)
[2019-03-22] MEDS ORDERED: PANTOPRAZOLE SODIUM 40 MG DR TABLET PO SCH (09:00)
[2019-03-22] MEDS: PANTOPRAZOLE SODIUM 40 MG DR TABLET PO SCH (09:00)
[2019-03-22] MEDS: DOCUSATE SODIUM 100 MG CAPSULE PO SCH ×2 (09:00→21:41)
[2019-03-22 09:11] LABS: HEMATOCRIT 36.1 % (36-46); HEMOGLOBIN 10.5 g/dL (12.0-16.0); MEAN CORPUSCULAR HEMOGLOBIN 23.3 pg (26.0-34.0); MEAN CORPUSCULAR HGB CONC 29.1 G/dL (31.0-37.0); MEAN CORPUSCULAR VOLUME 80 fL (80-100); RED BLOOD CELL COUNT(AUTO) 4.52 MIL/uL (4.00-5.20); RED CELL DISTRIBUTION WIDTH 17.7 % (11.5-14.5)
[2019-03-22 09:18] LABS: ABG A-A DIFF O2 646.7 mmHg (10-20.0); ABG BASE EXCESS -15.3 mmol/L (-2.0-3.0); ABG CARBOXYHEMOGLOBIN 0.8 % (0.0-1.5); ABG HCO3 13.5 mmol/L (22.0-26.0); ABG METHEMOGLOBIN 0.2 % (0.0-1.5); ABG OXYGEN CONTENT 15.1 mL/dL (15.0-23.0); ABG OXYGEN SATURATION 93.9 % (95.0-98.0); ABG PCO2 25 mmHg (35-45); ABG PH 7.285 (7.35-7.450); ABG TOTAL HEMOGLOBIN 11.5 G/dL (12.0-18.0); O2 DEVICE,BLOOD GAS VENTILATOR (ROOM AIR); PEEP,BG 12 cm H2O; PO2, ARTERIAL BG 53.3 mmHg (79.0-87.0); SITE, BLOOD GAS ARTERIAL LINE; SOURCE, BLOOD GAS ARTERIAL; SPONTANEOUS VT, BG 446 ml; TEMPERATURE, FAHRENHEIT, BG 88.9 FAHREN (96.0-98.6); VT, ABG 450 ml
[2019-03-22] MEDS ORDERED: MAGNESIUM SULFATE 1 GM in DEXTROSE 5%-WATER 50 ML IV ONE (09:30)
[2019-03-22 09:35] LABS: ALBUMIN 1.3 g/dL (3.4-5.0); BILIRUBIN,TOTAL 0.6 mg/dL (0.1-1.0); CALCIUM, TOTAL 10.4 mg/dL (8.8-10.5); CREATININE 2.15 mg/dL (0.60-1.30); MAGNESIUM 1.6 mg/dL (1.80-2.40); POTASSIUM 4.4 mmol/L (3.5-5.1); TOTAL PROTEIN, SERUM 4.8 g/dL (6.4-8.2)
[2019-03-22 10:04] LABS: PLATELET COUNT (AUTO) 81 K/uL (150-450)
[2019-03-22 10:20] LABS: BAND NEUTROPHILS % (MANUAL) 9 % (0-5); LYMPHOCYTES % (MANUAL) 10 % (22-44); MONOCYTES % (MANUAL) 1 % (2-9); SEGMENTED NEUTROPHILS % 80 % (40-70)
[2019-03-22] MEDS ORDERED: SODIUM CHLORIDE 0.45% IV SCH (10:30)
[2019-03-22] MEDS ORDERED: SODIUM BICARBONATE IV SCH (10:30)
[2019-03-22] MEDS ORDERED: MAGNESIUM SULFATE 1 GM in SODIUM CHLORIDE 0.9% 50 ML IV ONE (10:45)
[2019-03-22 10:49] LABS: GLUCOSE,POINT OF CARE > 600 MG/DL (70-110)
[2019-03-22] MEDS ORDERED: NOREPINEPHRINE BITARTRATE 4 MG in SODIUM CHLORIDE 0.9% 250 ML IV PRN (11:00)
[2019-03-22] MEDS ORDERED: VASOPRESSIN 40 UNITS in DEXTROSE 5%-WATER 98 ML IV SCH (11:15)
[2019-03-22] MEDS: SODIUM CHLORIDE IV SCH ×2 (11:33→20:39)
[2019-03-22] MEDS: [UNRECOGNIZED DRUG - OTHER] IV SCH ×2 (11:33→20:39)
[2019-03-22] MEDS: SODIUM BICARBONATE IV SCH ×2 (11:33→20:39)
[2019-03-22] MEDS: CALCIUM CHLORIDE IV PRN ×5 (11:34→23:07)
[2019-03-22] MEDS: EPINEPHRINE IV PRN ×5 (11:34→23:07)
[2019-03-22] MEDS: SODIUM CHLORIDE 0.9% IV PRN ×9 (11:34→23:07)
[2019-03-22] MEDS: NOREPINEPHRINE BITARTRATE IV PRN ×4 (11:35→21:47)
[2019-03-22] MEDS ORDERED: TAZOBACTAM IV SCH (12:00)
[2019-03-22] MEDS ORDERED: PIPERACILLIN SODIUM IV SCH (12:00)
[2019-03-22] MEDS ORDERED: SODIUM CHLORIDE 0.9% IV SCH (12:00)
[2019-03-22 12:08] LABS: GLUCOSE,POINT OF CARE > 600 MG/DL (70-110)
[2019-03-22] MEDS: PHENYLEPHRINE HCL 200 MG in SODIUM CHLORIDE 0.9% 230 ML IV PRN ×2 (13:00→20:38)
[2019-03-22 13:06] LABS: ALBUMIN 1.2 g/dL (3.4-5.0); BILIRUBIN,TOTAL 0.8 mg/dL (0.1-1.0); CALCIUM, TOTAL 10.4 mg/dL (8.8-10.5); CREATININE 1.82 mg/dL (0.60-1.30); POTASSIUM 4.4 mmol/L (3.5-5.1); TOTAL PROTEIN, SERUM 4.5 g/dL (6.4-8.2)
[2019-03-22] MEDS ORDERED: VASOPRESSIN 40 UNITS in DEXTROSE 5%-WATER 98 ML IV PRN (14:30)
[2019-03-22] MEDS ORDERED: VASOPRESSIN 40 UNITS in SODIUM CHLORIDE 0.9% 98 ML IV PRN (14:45)
[2019-03-22 15:25] LABS: GLUCOSE,POINT OF CARE 491 MG/DL (70-110)
[2019-03-22] MEDS ORDERED: DOPamine HCL 400 MG/D5%-WATER 250 ML IV ONE (17:33)
[2019-03-22 17:35] LABS: GLUCOSE,POINT OF CARE 478 MG/DL (70-110)
[2019-03-22 17:35] LABS: GLUCOSE,POINT OF CARE 433 MG/DL (70-110)
[2019-03-22 17:37] LABS: CALCIUM, TOTAL 11.5 mg/dL (8.8-10.5); CREATININE 2.02 mg/dL (0.60-1.30); POTASSIUM 4.3 mmol/L (3.5-5.1)
[2019-03-22] MEDS ORDERED: NOREPINEPHRINE 4 MG/D5%-WATER 250 ML IV ONE (18:13)
[2019-03-22] MEDS: PIPERACILLIN SODIUM/TAZOBACTAM 2.25 GM in SODIUM CHLORIDE 0.9% 50 ML IV SCH ×2 (18:33→23:55)
[2019-03-22 19:00] VITALS: BP 103/58
[2019-03-22 19:36] LABS: GLUCOSE,POINT OF CARE 437 MG/DL (70-110)
[2019-03-22 20:26] VITALS: BP 103/54
[2019-03-22] MEDS ORDERED: INFLUENZA VIRUS VACCINE QVS 2019-20 (3YR+)/PF 60 MCG/0.5 ML SYRINGE IM ONE (20:30)
[2019-03-22] MEDS ORDERED: PNEUMOCOCCAL VACCINE POLYVALENT 0.5 ML VIAL [PPSV23] IM ONE (20:30)
[2019-03-22] MEDS: VASOPRESSIN 40 UNITS in SODIUM CHLORIDE 0.9% 98 ML IV PRN (20:39)
[2019-03-22 21:22] LABS: GLUCOSE,POINT OF CARE 378 MG/DL (70-110)
[2019-03-22 21:22] LABS: GLUCOSE,POINT OF CARE 395 MG/DL (70-110)
[2019-03-22 21:22] LABS: GLUCOSE,POINT OF CARE 427 MG/DL (70-110)
[2019-03-22 21:41] LABS: CALCIUM, TOTAL 10.4 mg/dL (8.8-10.5); CREATININE 1.79 mg/dL (0.60-1.30); POTASSIUM 4.3 mmol/L (3.5-5.1)
[2019-03-22] MEDS ORDERED: SODIUM CHLORIDE 0.9% 250 ML IV ONE (21:45)
[2019-03-22 22:27] LABS: GLUCOSE,POINT OF CARE 323 MG/DL (70-110)
[2019-03-22 23:24] LABS: GLUCOSE,POINT OF CARE 303 MG/DL (70-110)
[2019-03-23] VITALS: BP 111/56
[2019-03-23 00:13] LABS: GLUCOSE,POINT OF CARE 288 MG/DL (70-110)
[2019-03-23] MEDS: SODIUM CHLORIDE 0.9% IV PRN (01:10)
[2019-03-23] MEDS: NOREPINEPHRINE BITARTRATE IV PRN (01:10)
[2019-03-23 01:17] LABS: GLUCOSE,POINT OF CARE 265 MG/DL (70-110)
[2019-03-23] MEDS: INSULIN REGULAR, HUMAN 100 UNITS in SODIUM CHLORIDE 0.9% 99 ML IV PRN ×2 (01:58)
[2019-03-23 02:46] LABS: GLUCOSE,POINT OF CARE 202 MG/DL (70-110)
[2019-03-23 03:23] LABS: GLUCOSE,POINT OF CARE 223 MG/DL (70-110)
[2019-03-23 04:00] VITALS: BP 113/60
[2019-03-23 04:34] LABS: GLUCOSE,POINT OF CARE 201 MG/DL (70-110)
[2019-03-23 05:11] LABS: GLUCOSE,POINT OF CARE 175 MG/DL (70-110)
[2019-03-23 05:18] LABS: CALCIUM, TOTAL 10.4 mg/dL (8.8-10.5); CREATININE 1.92 mg/dL (0.60-1.30); POTASSIUM 4.6 mmol/L (3.5-5.1); VANCOMYCIN,RANDOM 18.6 mcg/mL (25.0-50.0)
[2019-03-23] MEDS: PIPERACILLIN SODIUM/TAZOBACTAM 2.25 GM in SODIUM CHLORIDE 0.9% 50 ML IV SCH ×2 (05:21→11:24)
[2019-03-23] MEDS: HYDROCORTISONE SOD SUCC 100 MG/2 ML VIAL IVP SCH ×2 (05:26→11:23)
[2019-03-23] MEDS: SODIUM BICARBONATE IV SCH (06:48)
[2019-03-23] MEDS: SODIUM CHLORIDE IV SCH (06:48)
[2019-03-23] MEDS: [UNRECOGNIZED DRUG - OTHER] IV SCH (06:48)
[2019-03-23 07:13] LABS: GLUCOSE,POINT OF CARE 154 MG/DL (70-110)
[2019-03-23 07:13] LABS: GLUCOSE,POINT OF CARE 155 MG/DL (70-110)
[2019-03-23 08:00] VITALS: BP 120/66
[2019-03-23] MEDS ORDERED: VANCOMYCIN HCL 1.25 GM in SODIUM CHLORIDE 0.9% 250 ML IV SCH (08:00)
[2019-03-23] MEDS: DOCUSATE SODIUM 100 MG CAPSULE PO SCH (08:42)
[2019-03-23] MEDS: PANTOPRAZOLE SODIUM 40 MG DR TABLET PO SCH (08:42)
[2019-03-23] MEDS: PHENYLEPHRINE HCL 200 MG in SODIUM CHLORIDE 0.9% 230 ML IV PRN (09:43)
[2019-03-23 12:00] VITALS: BP 127/71
[2019-03-23] MEDS: VASOPRESSIN 40 UNITS in SODIUM CHLORIDE 0.9% 98 ML IV PRN (13:06)
[2019-03-23 13:07] VITALS: BP 111/68
[2019-03-23] MEDS ORDERED: MORPHINE SULFATE 100 MG/NS/PF 100 ML IV PRN (13:45)
[2019-03-23 17:29] LABS: GLUCOSE,POINT OF CARE 131 MG/DL (70-110)
[2019-03-23 17:29] LABS: GLUCOSE,POINT OF CARE 155 MG/DL (70-110)
[2019-03-23 17:29] LABS: GLUCOSE,POINT OF CARE 139 MG/DL (70-110)
[2019-03-23 17:29] LABS: GLUCOSE,POINT OF CARE 140 MG/DL (70-110)
[2019-03-23 17:29] LABS: GLUCOSE,POINT OF CARE 119 MG/DL (70-110)
[2019-03-23 17:29] LABS: GLUCOSE,POINT OF CARE 141 MG/DL (70-110)
== END 2019-03-23 15:25 | disposition expired | DRG 720 ==
LOC: EMS 10:29 → ICU 03-22 16:24
PROVIDERS: ADMIT Internal Medicine; ATTEND Internal Medicine
PROC: 5A1945Z Respiratory Ventilation, 24-96 Consecutive Hours (ICD-10-PCS; principal; 2019-03-22)
PROC: 0BH17EZ Insertion of Endotracheal Airway into Trachea, Via Natural or Artificial Opening (ICD-10-PCS; 2019-03-22)
PROC: 0B978ZZ Drainage of Left Main Bronchus, Via Natural or Artificial Opening Endoscopic (ICD-10-PCS; 2019-03-22)
PROC: 0B9F8ZZ Drainage of Right Lower Lung Lobe, Via Natural or Artificial Opening Endoscopic (ICD-10-PCS; 2019-03-22)
PROC: 0B9C8ZZ Drainage of Right Upper Lung Lobe, Via Natural or Artificial Opening Endoscopic (ICD-10-PCS; 2019-03-22)
PROC: 0B938ZZ Drainage of Right Main Bronchus, Via Natural or Artificial Opening Endoscopic (ICD-10-PCS; 2019-03-22)
PROC: 02HV33Z Insertion of Infusion Device into Superior Vena Cava, Percutaneous Approach (ICD-10-PCS; 2019-03-22)
PROC: B548ZZA Ultrasonography of Superior Vena Cava, Guidance (ICD-10-PCS; 2019-03-22)
DX: A41.9 Sepsis, unspecified organism (principal); I46.9 Cardiac arrest, cause unspecified; J69.0 Pneumonitis due to inhalation of food and vomit; J96.00 Acute respiratory failure, unspecified whether with hypoxia or hypercapnia; N17.0 Acute kidney failure with tubular necrosis; R65.21 Severe sepsis with septic shock; G93.1 Anoxic brain damage, not elsewhere classified; Z66 Do not resuscitate; I47.2 Ventricular tachycardia; E87.2 Acidosis; I13.0 Hypertensive heart and chronic kidney disease with heart failure and stage 1 through stage 4 chronic kidney disease, or unspecified chronic kidney disease; I50.32 Chronic diastolic (congestive) heart failure; E87.5 Hyperkalemia; E78.5 Hyperlipidemia, unspecified; D64.9 Anemia, unspecified; E11.22 Type 2 diabetes mellitus with diabetic chronic kidney disease; N18.9 Chronic kidney disease, unspecified; E87.1 Hypo-osmolality and hyponatremia; Z79.899 Other long term (current) drug therapy
CPT/HCPCS: 36600; 70450; 82805; 82948; 83605; 83735; 84100; 84443; 87040; 87081; 87804; 94002; 94003; 94640; 96365; 96375; 99291; 99292; G0378; G0480; J0171; J0610; J1265; J1644; J1720; J1815; J2270; J2370; J2543; J3370; J3475; J3490; J7030; J7050; J7060; J7131